=== PATIENT | male | born 1945 | race Caucasian/White ===

== ENCOUNTER → 2017-03-17 | Outpatient (CLI) | payer MEDICARE ==
[2017-01-02 10:55] VITALS: BP 124/54
[~2017-03-17] MED LIST: CIPR250T30 PO; DIPH25CA58 PO; DOCU100C28 PO; HYDR-2758 PO; HYDR-971 PO; LORA0.5T PO; POLY17PO29 PO; SENN-79 PO
--- NOTE | 2017-03-17 10:32 | RAD ---
CT of the chest without contrast, 03/17/2017: History: Follow-up pulmonary nodule Noncontrast scans were obtained and compared to a study from 04/21/2016. There are scattered calcified granulomata in the lungs. Other very tiny noncalcified nodules are also probably granulomas. There are patchy pulmonary opacities in the medial aspect of the right middle lobe which are unchanged. Similar streaky and nodular opacities are seen medially in the right lower lobe. These are also unchanged. The largest of these densities demonstrate low internal CT numbers in the range compatible with fat. 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 There are a few other scattered linear pulmonary opacities compatible with scars. No new or enlarging parenchymal abnormality is seen. There is calcific plaquing of the aorta and its branches. Minimal coronary artery calcifications are present. No mediastinal adenopathy is seen. There are scattered degenerative changes in the spine. Several small scattered lucencies are noted in the vertebral bodies. These appear unchanged since 04/21/2016 suggesting a benign etiology. IMPRESSION: 1. Old healed granulomatous disease in the chest with scattered parenchymal scars. 2. Unchanged pulmonary opacities in the medial aspects of the right middle and lower lobes with features suggesting lipoid pneumonia. 3. Coronary artery disease. 4. No new pulmonary abnormality is detected. PQRS Compliance Statement: One or more of the following individualized dose reduction techniques were utilized for this examination: 1. Automated exposure control 2. Adjustment of the mA and/or kV according to patient size 3. Use of iterative reconstruction technique
== END | disposition home or self-care (01) ==
LOC: CT 08:36
PROVIDERS: ATTEND Internal Medicine Critical Care Medicine
DX: I25.10 Atherosclerotic heart disease of native coronary artery without angina pectoris (principal); J84.10 Pulmonary fibrosis, unspecified
CPT/HCPCS: 71250